=== PATIENT | female | born 1965 | race Caucasian/White ===

== ENCOUNTER 2017-02-04 19:56 | Emergency (ER) | payer MEDICAID, OTHER ==
[~2017-02-04] VITALS: Ht 170.2 cm; Wt 57.0 kg
[~2017-02-04 19:56] MED LIST: AMOX500T PO; CIPR500T4 PO; CYCL1PAK PO; LISI-360 PO; LISI10TA3 PO
[2017-02-04 19:57] VITALS: BP 145/89; PULSE 96; RESP 15; TEMP 98.4; O2SAT 96
--- NOTE | 2017-02-04 20:09 | PD ---
Physical Exam Date Seen by Provider: Feb 04, 2017 Time Seen by Provider: 20:08 Narrative 51 yo female here for left hand injury. Piece of furniture fell on it while helping family move it. Has hematoma and pain to dorsal left hand. Pain is 8/ 10. No prior injuries. Occurred earlier today. Ice not helping. Vitals are stable in triage. Awaiting bed placement. Data Data Last Documented VS Vital Signs Date Time Temp Pulse Resp B/P (MAP) Pulse Ox O2 Delivery O2 Flow Rate FiO2 02/04/17 19:57 98.4 96 15 145/89 (107) 96 Room Air Orders Orders Hand, Complete ([id number]) (02/04/17 ) [facility] Medical Record Reviewed: Yes Supervised Visit with JESSICA: No Sandoval Ybarra Feb 04, 2017 20:09
--- NOTE | 2017-02-04 20:41 | RADRPT ---
EXAM DATE/TIME: 02/04/2017 20:33 [facility] COMPARISON: No previous studies available for comparison. INDICATIONS : Left hand pain after couch fell on hand today. MEDICAL HISTORY : Hypertension. Smoker. SURGICAL HISTORY : None. ENCOUNTER: Initial ACUITY: 1 day PAIN SCORE: 10/10 LOCATION: Left MCPJ. FINDINGS: Three view examination of the left hand demonstrates no soft tissue swelling, dislocation, or fractur e. The carpal bones appear intact. The interphalangeal and metacarpophalangeal joints are intact. Bony mineralization is normal. CONCLUSION: No acute fracture or joint dislocation. Juwan Johnston MD on February 04, 2017 at 20:39 Board Certified Radiologist. This report was verified electronically.
--- NOTE | 2017-02-04 21:24 | PD ---
HPI Chief Complaint: Injury Time Seen by Provider: 21:17 Travel History International Travel<30 days: No Contact w/Intl Traveler<30days: No Traveled to known affect area: No History of Present Illness HPI 51 YO RIGHT-HAND DOMINANT FEMALE presents to the ED for evaluation of 8/10 left hand pain. Onset today after a sofa fell on it while she was attempting to help her daughter move. She endorses pain but denies limitations to range of motion, numbness or tingling. Exacerbated by movement. No alleviating factors reported. She treated at home with ice and ibuprofen with no improvement. She is unsure the date of her last tetanus immunization. PFSH Past Medical History Arthritis: No Asthma: No Autoimmune Disease: No Blood Disorders: No Anxiety: Yes Depression: Yes Heart Rhythm Problems: No Cancer: No Cardiovascular Problems: Yes High Cholesterol: Yes Chemotherapy: No Chest Pain: Yes Congestive Heart Failure: No COPD: No Cerebrovascular Accident: No Diabetes: No Diminished Hearing: No Endocrine: No GERD: Yes Glaucoma: No Genitourinary: Yes (diverticulitis, 4 kidney stone surgeries ) Headaches: Yes (migraines) Hepatitis: No Hiatal Hernia: No Hypertension: Yes Immune Disorder: No Kidney Stones: Yes Musculoskeletal: Yes Neurologic: No Psychiatric: Yes Reproductive: Yes (FIBROIDS, ENOMETRIOSIS, ABNORMAL BLEEDING) Respiratory: No Myocardial Infarction: No Radiation Therapy: No Renal Failure: No Seizures: No Sleep Apnea: No Thyroid Disease: No Ulcer: No Tetanus Vaccination: < 5 Years Influenza Vaccination: No ?: Not Menopausal: Yes : 2 Para: 2 Miscarriage: 0 : 0 Past Surgical History Abdominal Surgery: Yes (2 lAPS ) AICD: No Cardiac Surgery: No Section: Yes (x2) Ear Surgery: No Endocrine Surgery: No Eye Surgery: No Genitourinary Surgery: Yes (ONE KIDNEY STONE REMOVED FROM HOMER KIDNEYS 12/30) Gynecologic Surgery: Yes (2 LAPS REMOVAL OF CYSTS ON RIGHT OVARY) Hysterectomy: Yes (Total) Oral Surgery: No Pacemaker: No Thoracic Surgery: No Other Surgery: Yes (2 C SECTIONS) Social History Alcohol Use: No Tobacco Use: Yes (1 ppd) Substance Use: No Allergies-Medications (Allergen,Severity, Reaction): Coded Allergies: sulfamethoxazole (Unverified Allergy, Severe, EDEMA, 02/04/17) Per pt. trimethoprim (Unverified Allergy, Severe, EDEMA, 02/04/17) Per pt. Reported Meds & Prescriptions Reported Meds & Active Scripts Active Ibuprofen 600 Mg Tab 600 Mg PO Q8HR PRN Lisinopril 10 Mg Tab 10 Mg PO DAILY Review of Systems Except as stated in HPI: all other systems reviewed are Neg Physical Exam Narrative GENERAL: Well-nourished, well-developed white female in no acute distress. SKIN: Focused skin assessment warm/dry. HEAD: Normocephalic. EYES: No scleral icterus. No injection or drainage. NECK: Supple, trachea midline. No JVD or lymphadenopathy. CARDIOVASCULAR: Regular rate and rhythm without murmurs, gallops, or rubs. RESPIRATORY: Breath sounds equal bilaterally. No accessory muscle use. GASTROINTESTINAL: Abdomen soft, non-tender, nondistended. MUSCULOSKELETAL: No cyanosis, or edema. FOCUSED LEFT UPPER EXTREMITY EXAM: 2+ radial pulse. There is a 2 cm right 3 cm hematoma over the MP joints of the left hand. There is a 1 cm superficial laceration over this same area. The patient is able to oppose the thumb to each finger. She is able to flex and extend her digits weakly. Cap refills less than 2 seconds and sensation is intact to light touch on each digit BACK: Nontender without obvious deformity. No CVA tenderness. Data Data Last Documented VS Vital Signs Date Time Temp Pulse Resp B/P (MAP) Pulse Ox O2 Delivery O2 Flow Rate FiO2 02/04/17 22:14 02/04/17 22:13 78 18 97 Room Air 02/04/17 19:57 98.4 Orders Orders Hand, Complete ([id number]) (02/04/17 ) Acetamin-Hydrocod 325-5 Mg ([place] 5-325 (02/04/17 21:30) Bigg Bandage (02/04/17 21:30) Ed Discharge Order (02/04/17 21:30) Tetanus/Diphtheria Tox Adult (Tetanus/Di (02/04/17 21:45) Mandatory Outpatient Referral (02/04/17 21:44) [facility] Medical Decision Making Medical Screen Exam Complete: Yes Emergency Medical Condition: Yes Differential Diagnosis Contusion versus abrasion versus hematoma versus fracture versus dislocation versus tendinitis versus need for tetanus immunization versus other Narrative Course 51 YO RIGHT-HAND DOMINANT FEMALE presents to the ED for evaluation of 8/10 left hand pain. Exacerbated by movement. No alleviating factors reported. Onset today after a sofa fell on it while she was helping her daughter move. She denies limitations to ROM, numbness or tingling, previous injury. She is unsure the date of her last tetanus immunization. Vitals reviewed. FOCUSED LEFT UPPER EXTREMITY EXAM: 2+ radial pulse. There is a 2 cm right 3 cm hematoma over the MP joints of the left hand. There is a 1 cm superficial laceration over this same area. The patient is able to oppose the thumb to each finger. She is able to flex and extend her digits weakly. Cap refills less than 2 seconds and sensation is intact to light touch on each digit. Patient was administered 5 mg Lortab, ice pack was applied. Patient's tetanus immunization was updated. X-rays reveal no acute fracture or dislocation. Bigg wrap was applied to the affected area. Patient was instructed to rest, ice, elevate the extremity. She was provided with a prescription for ibuprofen. An mandatory outpatient follow-up was placed with the hand surgeon on-call, Dr. Grace. No one the patient of the dangers of compartment syndrome as well as possible secondary infection. I explained the outpatient follow-up process. Patient indicated understanding of the discharge instructions. She is stable and discharged home. Diagnosis Primary Impression: Traumatic hematoma of left hand Qualified Codes: S60.222A - Contusion of left hand, initial encounter Referrals: Jace Grace MD Patient Instructions: General Instructions, Hematoma (ED) Additional Instructions: Rest, ice, elevate the extremity. Apply ice no longer than 10-15 minutes per hour a few times a day. 800 mg ibuprofen up to 3 times a day as needed for pain. Return to normal, gentle activity as tolerated. Follow-up with the hand surgeon as discussed. Return to the ED for any urgent or emergent medical condition. Med/Other Pt SpecificInfo: Prescription(s) given Scripts Ibuprofen (Ibuprofen) 600 Mg Tab 600 MG PO Q8HR Y for PAIN, #15 TAB 0 Refills Prov: Nichole Wall MD 02/04/17 Disposition: 01 DISCHARGE HOME Condition: Stable Sagrario Burton Feb 04, 2017 21:24
[2017-02-04] MEDS ORDERED: ACETAMINOPHEN/HYDROcodone 325 MG/5 MG TAB PO ONE (21:30)
[2017-02-04] MEDS ORDERED: IBUP-232 PO (21:31)
[2017-02-04] MEDS ORDERED: TETANUS/DIPHTHERIA TOXOID ADULT 0.5 ML VIAL IM ONE (21:45)
[2017-02-04 22:13] VITALS: BP 138/84; PULSE 78; RESP 18; O2SAT 97
== END 2017-02-04 22:15 | disposition home or self-care (01) ==
LOC: NEPC 19:56
DX: S60.222A Contusion of left hand, initial encounter (principal); I10 Essential (primary) hypertension; E78.00 Pure hypercholesterolemia, unspecified; F17.200 Nicotine dependence, unspecified, uncomplicated; W20.8XXA Other cause of strike by thrown, projected or falling object, initial encounter; Z23 Encounter for immunization; Z86.59 Personal history of other mental and behavioral disorders; Z86.79 Personal history of other diseases of the circulatory system; Z87.19 Personal history of other diseases of the digestive system; Z87.448 Personal history of other diseases of urinary system; Z87.39 Personal history of other diseases of the musculoskeletal system and connective tissue; Z87.42 Personal history of other diseases of the female genital tract
CPT/HCPCS: 73130; 99283

== ENCOUNTER 2017-03-02 12:16 | Emergency (ER) | payer MEDICAID ==
[~2017-03-02] VITALS: Ht 167.6 cm; Wt 60.0 kg
[~2017-03-02 12:16] MED LIST changes: -AMOX500T PO; -CIPR500T4 PO; -CYCL1PAK PO; +IBUP-232 PO; -LISI-360 PO
[2017-03-02 12:19] VITALS: BP 131/109; PULSE 105; RESP 18; TEMP 97.6; O2SAT 97
[2017-03-02] MEDS ORDERED: methylPREDNISolone SOD SUCC 125 MG/2 ML VIAL IV PUSH ONE (12:45)
[2017-03-02] MEDS ORDERED: RESP: ALBUTEROL 2.5 MG/IPRATROPIUM 0.5 MG NEB (SCH) INH ONE (12:45)
[2017-03-02] MEDS ORDERED: SODIUM CHLORIDE 0.9% FLUSH 10 ML FLUSH IVF PRN (12:45)
[2017-03-02 12:48] VITALS: O2SAT 97
--- NOTE | 2017-03-02 12:50 | PD ---
HPI Chief Complaint: Medical Clearance Time Seen by Provider: 12:23 Travel History International Travel<30 days: No Contact w/Intl Traveler<30days: No Traveled to known affect area: No History of Present Illness HPI Patient is a 51 year old female who presents to the ER with multiple complaints. Patient reports that she is a 1-2 ppd smoker. Patient reports that for the past few weeks, she has had increased congestion and a productive cough. Reports that she has been taking cough medications without resolution of symptoms. Reports that she has had chills with no fever. Denies chest pain/ sob. Denies abdominal pain or nausea or vomiting. Reports that her whole family is sick with similar symptoms. Patient also reports that for the past 3 weeks, she has felt numbness from her neck down to her right hand. Reports that sometimes the numbness moves from left to right hand. Reports no trauma or alleviating factors. Denies head/dizziness, Reports history of chronic back pain. PFSH Past Medical History Arthritis: No Asthma: No Autoimmune Disease: No Blood Disorders: No Anxiety: Yes Depression: Yes Heart Rhythm Problems: No Cancer: No Cardiovascular Problems: Yes High Cholesterol: Yes Chemotherapy: No Chest Pain: Yes Congestive Heart Failure: No COPD: No Cerebrovascular Accident: No Diabetes: No Diminished Hearing: No Endocrine: No GERD: Yes Glaucoma: No Genitourinary: Yes (diverticulitis, 4 kidney stone surgeries ) Headaches: Yes (migraines) Hepatitis: No Hiatal Hernia: No Hypertension: Yes Immune Disorder: No Kidney Stones: Yes Musculoskeletal: Yes Neurologic: No Psychiatric: Yes Reproductive: Yes (FIBROIDS, ENOMETRIOSIS, ABNORMAL BLEEDING) Respiratory: No Myocardial Infarction: No Radiation Therapy: No Renal Failure: No Seizures: No Sleep Apnea: No Thyroid Disease: No Ulcer: No ?: Not Menopausal: Yes : 2 Para: 2 Miscarriage: 0 : 0 Past Surgical History Abdominal Surgery: Yes (2 lAPS ) AICD: No Cardiac Surgery: No Section: Yes (x2) Ear Surgery: No Endocrine Surgery: No Eye Surgery: No Genitourinary Surgery: Yes (ONE KIDNEY STONE REMOVED FROM HOMER KIDNEYS 12/30) Gynecologic Surgery: Yes (2 LAPS REMOVAL OF CYSTS ON RIGHT OVARY) Hysterectomy: Yes Oral Surgery: No Pacemaker: No Thoracic Surgery: No Other Surgery: Yes (2 C SECTIONS) Social History Alcohol Use: No Tobacco Use: Yes (1 ppd) Substance Use: No Allergies-Medications (Allergen,Severity, Reaction): Coded Allergies: sulfamethoxazole (Unverified Allergy, Severe, EDEMA, 02/04/17) Per pt. trimethoprim (Unverified Allergy, Severe, EDEMA, 02/04/17) Per pt. Reported Meds & Prescriptions Reported Meds & Active Scripts Active Ibuprofen 600 Mg Tab 600 Mg PO Q8HR PRN Lisinopril 10 Mg Tab 10 Mg PO DAILY Review of Systems General / Constitutional: No: Fever Eyes: No: Visual changes HENT: No: Headaches Cardiovascular: No: Chest Pain or Discomfort, Palpitations, Irregular Rhythm Respiratory: Positive: Cough, Shortness of Breath, Wheezing Gastrointestinal: No: Abdominal Pain Genitourinary: No: Dysuria Musculoskeletal: No: Pain Skin: No Rash Neurologic: Positive: Paresthesia, No: Weakness, Dizziness, Headache Psychiatric: No: Depression Endocrine: No: Polydipsia Hematologic/Lymphatic: No: Easy Bruising Physical Exam Narrative GENERAL: NAD SKIN: Focused skin assessment warm/dry. HEAD: Atraumatic. Normocephalic. EYES: Pupils equal and round. No scleral icterus. No injection or drainage. ENT: No nasal bleeding or discharge. Mucous membranes pink and moist. NECK: Trachea midline. No JVD. Paraspinal tenderness CARDIOVASCULAR: Regular rate and rhythm. No murmur appreciated. RESPIRATORY: No accessory muscle use. Clear to auscultation. Breath sounds equal bilaterally. GASTROINTESTINAL: Abdomen soft, non-tender, nondistended. Hepatic and splenic margins not palpable. MUSCULOSKELETAL: No obvious deformities. No clubbing. No cyanosis. No edema. NEUROLOGICAL: Awake and alert. No obvious cranial nerve deficits. Motor grossly within normal limits. Normal speech. CN 2-12 grossly intact with no neurovascular compromise PSYCHIATRIC: Appropriate mood and affect; insight and judgment normal. Data Data Last Documented VS Vital Signs Date Time Temp Pulse Resp B/P (MAP) Pulse Ox O2 Delivery O2 Flow Rate FiO2 03/02/17 13:12 18 03/02/17 12:48 97 Nasal Cannula 2.00 03/02/17 12:19 97.6 105 Orders Orders Complete Blood Count With Diff (03/02/17 12:33) Basic Metabolic Panel (Bmp) (03/02/17 12:33) Chest, Single Ap (03/02/17 12:33) Ecg Monitoring (03/02/17 12:33) Iv Access Insert/Monitor (03/02/17 12:33) Oximetry (03/02/17 12:33) Sodium Chloride 0.9% Flush (Ns Flush) (03/02/17 12:45) Influenzae A/B Antigen (03/02/17 12:33) Methylprednisolone So Succ Inj (Solumedr (03/02/17 12:45) Albuterol-Ipratropium Neb (Duoneb Neb) (03/02/17 12:45) Ct Brain W/O Iv Contrast(Rout) (03/02/17 12:33) Ct Cerv Spine W/O Contrast (03/02/17 12:33) Potassium Chloride (Kcl) (03/02/17 13:45) Labs Laboratory Tests Test 03/02/17 12:46 White Blood Count 9.7 TH/MM3 Red Blood Count 4.57 MIL/MM3 Hemoglobin 14.4 GM/DL Hematocrit 43.7 % Mean Corpuscular Volume 95.8 FL Mean Corpuscular Hemoglobin 31.6 PG Mean Corpuscular Hemoglobin Concent 33.0 % Red Cell Distribution Width 15.1 % Platelet Count 218 TH/MM3 Mean Platelet Volume 8.3 FL Neutrophils (%) (Auto) 70.7 % Lymphocytes (%) (Auto) 21.2 % Monocytes (%) (Auto) 6.8 % Eosinophils (%) (Auto) 0.6 % Basophils (%) (Auto) 0.7 % Neutrophils # (Auto) 6.8 TH/MM3 Lymphocytes # (Auto) 2.0 TH/MM3 Monocytes # (Auto) 0.7 TH/MM3 Eosinophils # (Auto) 0.1 TH/MM3 Basophils # (Auto) 0.1 TH/MM3 CBC Comment DIFF FINAL Differential Comment Blood Urea Nitrogen 5 MG/DL Creatinine 0.67 MG/DL Random Glucose 90 MG/DL Calcium Level 8.6 MG/DL Sodium Level 139 MEQ/L Potassium Level 3.1 MEQ/L Chloride Level 103 MEQ/L Carbon Dioxide Level 26.5 MEQ/L Anion Gap 10 MEQ/L Estimat Glomerular Filtration Rate 92 ML/MIN MDM Medical Decision Making Medical Screen Exam Complete: Yes Emergency Medical Condition: Yes Medical Record Reviewed: Yes Interpretation(s) Vital Signs Date Time Temp Pulse Resp B/P (MAP) Pulse Ox O2 Delivery O2 Flow Rate FiO2 03/02/17 12:19 97.6 105 18 131/109 (116) 97 Room Air Differential Diagnosis Bronchitis, pneumonia, cervical radiculopathy, electrolyte abnormality Narrative Course 51-year-old nontoxic female who presents to emergency room with complaints of productive cough for the past 3 weeks along with paresthesias and numbness to the right arm for the past 3 weeks. Patient with no neurovascular compromise at this time, reports chronic neck and back pain. CT of the head and neck ordered to evaluate for cervical radiculopathy, x-ray of the chest ordered to evaluate for possible pneumonia. During the course of the patients emergency department visit, the patients history, examination, and differential diagnosis were reviewed with the patient. The patient was placed on a cook pressure with oximetry and frequent blood pressure monitoring. The patient had a 20-gauge IV access obtained and blood work sent for analysis. The patient was initially provided IV steroids, nebulizer treatment The patients laboratory studies were reviewed and remarkable for Laboratory Tests Test 03/02/17 12:46 White Blood Count 9.7 TH/MM3 (4.0-11.0) Red Blood Count 4.57 MIL/MM3 (4.00-5.30) Hemoglobin 14.4 GM/DL (11.6-15.3) Hematocrit 43.7 % (35.0-46.0) Mean Corpuscular Volume 95.8 FL (80.0-100.0) Mean Corpuscular Hemoglobin 31.6 PG (27.0-34.0) Mean Corpuscular Hemoglobin Concent 33.0 % (32.0-36.0) Red Cell Distribution Width 15.1 % (11.6-17.2) Platelet Count 218 TH/MM3 (150-450) Mean Platelet Volume 8.3 FL (7.0-11.0) Neutrophils (%) (Auto) 70.7 % (16.0-70.0) Lymphocytes (%) (Auto) 21.2 % (9.0-44.0) Monocytes (%) (Auto) 6.8 % (0.0-8.0) Eosinophils (%) (Auto) 0.6 % (0.0-4.0) Basophils (%) (Auto) 0.7 % (0.0-2.0) Neutrophils # (Auto) 6.8 TH/MM3 (1.8-7.7) Lymphocytes # (Auto) 2.0 TH/MM3 (1.0-4.8) Monocytes # (Auto) 0.7 TH/MM3 (0-0.9) Eosinophils # (Auto) 0.1 TH/MM3 (0-0.4) Basophils # (Auto) 0.1 TH/MM3 (0-0.2) CBC Comment DIFF FINAL Differential Comment Blood Urea Nitrogen 5 MG/DL (7-18) Creatinine 0.67 MG/DL (0.50-1.00) Random Glucose 90 MG/DL (74-106) Calcium Level 8.6 MG/DL (8.5-10.1) Sodium Level 139 MEQ/L (136-145) Potassium Level 3.1 MEQ/L (3.5-5.1) Chloride Level 103 MEQ/L (98-107) Carbon Dioxide Level 26.5 MEQ/L (21.0-32.0) Anion Gap 10 MEQ/L (5-15) Estimat Glomerular Filtration Rate 92 ML/MIN (>89) Microbiology Date/Time Source Procedure Growth Status 03/02/17 12:46 Nasal Aspirate Influenza Types A,B Antigen (RACHEL) - Final NEGATIVE FOR FLU A AND B ANTIGEN.... Complete Radiology studies were reviewed and remarkable for: Last Impressions Head CT 03/02/17 1233 Signed Impressions: Service Date/Time: Thursday, March 02, 2017 13:22 - CONCLUSION: No acute intracranial abnormality. Wilber Cates MD Chest X-Ray 03/02/17 1233 Signed Impressions: Service Date/Time: Thursday, March 02, 2017 13:03 - CONCLUSION: No evidence of acute cardiopulmonary disease. Wilber Cates MD Ct of c-spine: no fracture, subluxation or stenosis Overall, patient is feeling much better at this time. Right arm numbness most likely from cervical radiculopathy - symptoms have been ongoing for the past 3 weeks, she has no neurovascular compromise at this time. She'll follow-up with neurology as outpatient. Patient also with acute bronchitis, plan to treat with steroids, neb treatments, antibiotics. She will follow up with her pcp as outpatient and will return to ER as needed. I reviewed all labs and studies as well as all incidental findings with patient in detail. Diagnosis Primary Impression: Acute bronchitis Qualified Codes: J20.9 - Acute bronchitis, unspecified Additional Impression: Radiculopathy Qualified Codes: M54.12 - Radiculopathy, cervical region Patient Instructions: General Instructions Additional Instructions: Please provide patient with a copy of their lab work and studies at discharge* * Please follow up with your primary care doctor in 2-3 days Please follow up with neurologist for your paraesthesia's Return to the ER if symptoms worsen or progress Return to the ER as needed Med/Other Pt SpecificInfo: Prescription(s) given Scripts Promethazine-Codeine Liq (Promethazine-Codeine Liq) 6.25-10 Mg/5 Ml Syrp 5 ML PO Q6H Y for COUGH AND/OR COLD SYMPTOMS for 10 Days, #200 ML 0 Refills Prov: Filomena Alfonso DO 03/02/17 Benzonatate (Tessalon Perles) 100 Mg Cap 100 MG PO TID Y for COUGH, #30 CAP 0 Refills Prov: Filomena Alfonso DO 03/02/17 Prednisone (Prednisone) 20 Mg Tab 20 MG PO BID for 5 Days, #10 TAB 0 Refills Prov: Filomena Alfonso DO 03/02/17 Albuterol 8.5 GM Inh (Proair Hfa 8.5 GM Inh) 90 Mcg/Act Aer 2 PUFF INH Q4-6H Y for SHORTNESS OF BREATH, #1 INHALER 0 Refills 108 mcg/actuation Prov: Filomena Alfonso DO 03/02/17 Azithromycin (Azithromycin) 500 Mg Tab 500 MG PO DAILY for Infection, #5 TAB 0 Refills Prov: Filomena Alfonso DO 03/02/17 Disposition: 01 DISCHARGE HOME Condition: Stable Filomena Alfonso DO Mar 02, 2017 12:50
[2017-03-02 13:06] LABS: AUTOMATED NEUTROPHIL # 6.8 TH/MM3 (1.8-7.7); BASOPHIL # 0.1 TH/MM3 (0-0.2); BASOPHIL % 0.7 % (0.0-2.0); EOSINOPHIL # 0.1 TH/MM3 (0-0.4); EOSINOPHIL % 0.6 % (0.0-4.0); HEMATOCRIT 43.7 % (35.0-46.0); HEMO FLAGS DIFF FINAL; LYMPH % 21.2 % (9.0-44.0); MEAN CELL VOLUME 95.8 FL (80.0-100.0); MEAN CORPUSCULAR HEMOGLOBIN 31.6 PG (27.0-34.0); MONO % 6.8 % (0.0-8.0); NEUT % 70.7 % (16.0-70.0); PLATELET COUNT 218 TH/MM3 (150-450); RED BLOOD COUNT 4.57 MIL/MM3 (4.00-5.30); RED CELL DISTRIBUTION WIDTH 15.1 % (11.6-17.2); WHITE BLOOD COUNT 9.7 TH/MM3 (4.0-11.0)
[2017-03-02 13:29] LABS: BICARBONATE 26.5 MEQ/L (21.0-32.0)
--- NOTE | 2017-03-02 13:30 | RADRPT ---
EXAM DATE/TIME: 03/02/2017 13:22 [facility] COMPARISON: Report only CT BRAIN W/O CONTRAST, December 30, 2011, 22:56. INDICATIONS : Right arm numbness for three weeks. RADIATION DOSE: 34.48 CTDIvol (mGy) MEDICAL HISTORY : Cardiovascular disease. Hypertension. SURGICAL HISTORY : Hysterectomy. ENCOUNTER: Initial ACUITY: 1 day PAIN SCALE: 0/10 LOCATION: Bilateral head TECHNIQUE: Multiple contiguous axial images were obtained of the head. Using automated exposure control and adj ustment of the mA and/or kV according to patient size, radiation dose was kept as low as reasonably a chievable to obtain optimal diagnostic quality images. DICOM format image data is available electro nically for review and comparison. FINDINGS: CEREBRUM: The ventricles are normal for age. No evidence of midline shift, mass lesion, hemorrhage or acute in farction. No extra-axial fluid collections are seen. POSTERIOR FOSSA: The cerebellum and brainstem are intact. The 4th ventricle is midline. The cerebellopontine angle i s unremarkable. EXTRACRANIAL: The visualized portion of the orbits is intact. SKULL: The calvaria is intact. No evidence of skull fracture. CONCLUSION: No acute intracranial abnormality. Wilber Cates MD on March 02, 2017 at 13:28 Board Certified Radiologist. This report was verified electronically.
--- NOTE | 2017-03-02 13:34 | RADRPT ---
EXAM DATE/TIME: 03/02/2017 13:03 [facility] COMPARISON: CHEST SINGLE AP, January 05, 2014, 18:49. INDICATIONS : Chest pain and shortness of breath. MEDICAL HISTORY : Hypercholesterolemia. Hypertension SURGICAL HISTORY : None. ENCOUNTER: Initial ACUITY: 1 day PAIN SCORE: 4/10 LOCATION: Bilateral chest FINDINGS: A single view of the chest demonstrates the lungs to be symmetrically aerated without evidence of mas s, infiltrate or effusion. The cardiomediastinal contours are unremarkable. Osseous structures are intact. CONCLUSION: No evidence of acute cardiopulmonary disease. Wilber Cates MD on March 02, 2017 at 13:31 Board Certified Radiologist. This report was verified electronically.
[2017-03-02 13:43] LABS: POTASSIUM 3.1 MEQ/L (3.5-5.1)
--- NOTE | 2017-03-02 13:43 | RADRPT ---
EXAM DATE/TIME: 03/02/2017 13:22 [facility] COMPARISON: No previous studies available for comparison. INDICATIONS : Right arm numbness for three weeks. RADIATION DOSE: 10.49 CTDIvol (mGy) MEDICAL HISTORY : Cardiovascular disease. Hypertension. SURGICAL HISTORY : Hysterectomy. ENCOUNTER: Initial ACUITY: 1 day PAIN SCALE: 0/10 LOCATION: Bilateral neck TECHNIQUE: Volumetric scanning of the cervical spine was performed. Multiplanar reconstructions in the sagittal, coronal and oblique axial planes were performed. Using automated exposure control and adjustment o f the mA and/or kV according to patient size, radiation dose was kept as low as reasonably achievable to obtain optimal diagnostic quality images. DICOM format image data is available electronically f or review and comparison. FINDINGS: VERTEBRAE: Normal vertebral body height. ALIGNMENT: No evidence of subluxation. C2-C3: The bony spinal canal is normal in size. No evidence of disc bulge or herniation. The neural forami na are bilaterally patent. C3-C4: The bony spinal canal is normal in size. No evidence of disc bulge or herniation. The neural forami na are bilaterally patent. C4-C5: The bony spinal canal is normal in size. No evidence of disc bulge or herniation. The neural forami na are bilaterally patent. C5-C6: The bony spinal canal is normal in size. No evidence of disc bulge or herniation. The neural forami na are bilaterally patent. C6-C7: The bony spinal canal is normal in size. No evidence of disc bulge or herniation. The neural forami na are bilaterally patent. C7-T1: The bony spinal canal is normal in size. No evidence of disc bulge or herniation. The neural forami na are bilaterally patent. Emphysema seen of the visualized lung apices. CONCLUSION: Negative CT of the cervical spine. No fracture, subluxation or stenosis. Wilber Cates MD on March 02, 2017 at 13:38 Board Certified Radiologist. This report was verified electronically.
[2017-03-02] MEDS ORDERED: POTASSIUM CHLORIDE 10 MEQ CONTROLLED RELEASE TAB PO ONE (13:45)
[2017-03-02] MEDS ORDERED: ALBUAER3 INH (13:51)
[2017-03-02] MEDS ORDERED: AZIT500T2 PO (13:51)
[2017-03-02] MEDS ORDERED: BENZ100 PO (13:51)
[2017-03-02] MEDS ORDERED: PROM6.256 PO (13:51)
[2017-03-02] MEDS ORDERED: PRED20 PO (13:51)
[2017-03-02] MEDS ORDERED: AZITHROMYCIN 250 MG TAB PO ONE (14:00)
== END 2017-03-02 14:04 | disposition home or self-care (01) ==
LOC: NEPD 12:16
DX: J20.9 Acute bronchitis, unspecified (principal); M54.12 Radiculopathy, cervical region; F41.9 Anxiety disorder, unspecified; F32.9 Major depressive disorder, single episode, unspecified; E78.00 Pure hypercholesterolemia, unspecified; K21.9 Gastro-esophageal reflux disease without esophagitis; K57.92 Diverticulitis of intestine, part unspecified, without perforation or abscess without bleeding; I10 Essential (primary) hypertension; F17.200 Nicotine dependence, unspecified, uncomplicated
CPT/HCPCS: 70450; 71010; 72125; 80048; 85025; 87804; 94664; 96374; 99285; J2930

== ENCOUNTER 2017-04-30 04:53 | Emergency (ER) | payer MEDICAID ==
[~2017-04-30] VITALS: Ht 170.2 cm; Wt 55.0 kg
[~2017-04-30 04:53] MED LIST changes: +ALBUAER3 INH; +AZIT500T2 PO; +BENZ100 PO; +PRED20 PO; +PROM6.256 PO
[2017-04-30 04:55] VITALS: BP 131/92; PULSE 114; RESP 16; TEMP 98.5; O2SAT 98
[2017-04-30] MEDS ORDERED: AMOXICILLIN (TRIHYDRATE) 500 MG CAP PO ONE (05:30)
[2017-04-30] MEDS ORDERED: ACETAMINOPHEN/HYDROcodone 325 MG/5 MG TAB PO ONE (05:30)
--- NOTE | 2017-04-30 05:35 | PD ---
HPI Chief Complaint: Injury Time Seen by Provider: 05:17 Travel History International Travel<30 days: No Contact w/Intl Traveler<30days: No Traveled to known affect area: No History of Present Illness HPI 51-year-old white female presents to emergency Department with complaints of left ankle pain. She states that she had injured it earlier this evening when her boxer had stepped onto her ankle. Patient states the pain is severe. She denies any other injuries. She denies any numbness or tingling. No alleviating factors. Exacerbated by movement. PFSH Past Medical History Arthritis: No Asthma: No Autoimmune Disease: No Blood Disorders: No Anxiety: Yes Depression: Yes Heart Rhythm Problems: No Cancer: No Cardiovascular Problems: Yes High Cholesterol: Yes Chemotherapy: No Chest Pain: Yes Congestive Heart Failure: No COPD: No Cerebrovascular Accident: No Diabetes: No Diminished Hearing: No Endocrine: No Gastrointestinal Disorders: No GERD: Yes Glaucoma: No Genitourinary: Yes (diverticulitis, 4 kidney stone surgeries ) Headaches: Yes (migraines) Hepatitis: No Hiatal Hernia: No Hypertension: Yes Immune Disorder: No Implanted Vascular Access Dvce: No Kidney Stones: Yes Musculoskeletal: Yes Neurologic: No Psychiatric: Yes Reproductive: Yes (FIBROIDS, ENOMETRIOSIS, ABNORMAL BLEEDING) Respiratory: No Myocardial Infarction: No Radiation Therapy: No Renal Failure: No Seizures: No Sleep Apnea: No Thyroid Disease: No Ulcer: No Tetanus Vaccination: < 5 Years Influenza Vaccination: No ?: Not LMP: menapause Menopausal: Yes : 2 Para: 2 Miscarriage: 0 : 0 Past Surgical History Abdominal Surgery: Yes (2 lAPS ) AICD: No Section: Yes (x2) Genitourinary Surgery: Yes (ONE KIDNEY STONE REMOVED FROM HOMER KIDNEYS 12/30) Gynecologic Surgery: Yes (2 LAPS REMOVAL OF CYSTS ON RIGHT OVARY) Hysterectomy: Yes Insulin Pump: No Pacemaker: No Other Surgery: Yes (2 C SECTIONS) Social History Alcohol Use: No Tobacco Use: Yes (1 ppd) Substance Use: No Allergies-Medications (Allergen,Severity, Reaction): Coded Allergies: sulfamethoxazole (Unverified Allergy, Severe, EDEMA, 04/30/17) Per pt. trimethoprim (Unverified Allergy, Severe, EDEMA, 04/30/17) Per pt. Reported Meds & Prescriptions Reported Meds & Active Scripts Active Ibuprofen 600 Mg Tab 600 Mg PO Q6H PRN Amoxicillin 500 Mg Cap 500 Mg PO BID 10 Days Promethazine-Codeine Liq 6.25-10 Mg/5 Ml Syrp 5 Ml PO Q6H PRN 10 Days Tessalon Perles (Benzonatate) 100 Mg Cap 100 Mg PO TID PRN Prednisone 20 Mg Tab 20 Mg PO BID 5 Days Proair Hfa 8.5 GM Inh (Albuterol Sulfate) 90 Mcg/Act Aer 2 Puff INH Q4-6H PRN 108 mcg/actuation Azithromycin 500 Mg Tab 500 Mg PO DAILY Ibuprofen 600 Mg Tab 600 Mg PO Q8HR PRN Lisinopril 10 Mg Tab 10 Mg PO DAILY Review of Systems General / Constitutional: No: Fever Eyes: No: Visual changes HENT: Positive: Sore Throat, Congestion, No: Headaches Cardiovascular: No: Chest Pain or Discomfort Respiratory: No: Shortness of Breath Gastrointestinal: No: Abdominal Pain Genitourinary: No: Dysuria Musculoskeletal: Positive: Arthralgias, Limited ROM, Edema, Pain Skin: No Rash Neurologic: No: Weakness, Paresthesia Psychiatric: No: Depression Endocrine: No: Polydipsia Hematologic/Lymphatic: No: Easy Bruising Physical Exam Narrative GENERAL: This is a well-nourished, well-developed patient, in no apparent distress. SKIN: No rashes, ecchymoses or lesions. Warm and dry. HEAD: Atraumatic. Normocephalic. EYES: PERRL, EOMI, no discharge or injection. No scleral icterus. EARS: Clear NOSE: Nasal turbinates appear normal. THROAT: Mucosa erythematous and moist. Airway patent. NECK: Trachea midline. supple, moves head freely. LUNGS: Clear to auscultation. CV: Regular in rhythm. ABDOMEN: Soft nontender. EXT: No clubbing cyanosis . Examination of the left lower extremity reveals moderate swelling in the ankle with erythema both medially and laterally. She has mild swelling into the foot. She has intact sensation with good distal pulses. The skin is intact. No pain in the knee or hip. The right lower extremity as well as upper extremities are without localizing bony tenderness or deformity. Data Data Last Documented VS Vital Signs Date Time Temp Pulse Resp B/P (MAP) Pulse Ox O2 Delivery O2 Flow Rate FiO2 04/30/17 06:19 100 16 123/67 (85) 98 Room Air 04/30/17 04:55 98.5 Orders Orders Ankle, Complete (Tpg6kgv) (04/30/17 05:29) Ice/Cold Pack (04/30/17 05:29) Amoxicillin (Trimox) (04/30/17 05:30) Acetamin-Hydrocod 325-5 Mg ([place] 5-325 (04/30/17 05:30) Splint Or Brace Apply/Monitor (04/30/17 06:19) Crutches (04/30/17 06:19) MDM Medical Decision Making Medical Screen Exam Complete: Yes Emergency Medical Condition: Yes Medical Record Reviewed: Yes Interpretation(s) Left ankle: Negative for acute fracture. Positive soft tissue swelling Differential Diagnosis MDM: High Differential diagnoses: Fracture, sprain, strain, dislocation, contusion, neurovascular injury Narrative Course Patient's story of being stepped on by her dog's is hard to believe. Patient has a tender, swollen, red ankle. She has had no history of other trauma. She has had development of a cold and a sore throat over the last few days. Patient will be treated symptomatically with Motrin, Bigg wrap and crutches. She 'll also be given amoxicillin for her otitis. This is left ankle pain, acute pharyngitis Diagnosis Primary Impression: Left ankle pain Additional Impression: acute pharyngitis Patient Instructions: General Instructions, Narcotic given in the ED Additional Instructions: Rest. Elevation. Ice packs for the next 3 days. Bigg wrap and crutches. No weight-bearing and then progress to weight-bearing as tolerated. Medications as directed Amoxicillin. Force fluids. Follow-up with Dr. Corrales your doctor in the next 2 days. Return to the ER if any problems Med/Other Pt SpecificInfo: Prescription(s) given Scripts Ibuprofen (Ibuprofen) 600 Mg Tab 600 MG PO Q6H Y for Pain/Inflammation, #40 TAB 0 Refills Prov: Gume West MD 04/30/17 Amoxicillin (Amoxicillin) 500 Mg Cap 500 MG PO BID for Infection for 10 Days, #20 CAP 0 Refills Prov: Gume West MD 04/30/17 Disposition: 01 DISCHARGE HOME Condition: Stable Bola Winters Apr 30, 2017 05:35
[2017-04-30 06:19] VITALS: BP 123/67; PULSE 100; RESP 16; O2SAT 98
[2017-04-30] MEDS ORDERED: AMOX500C PO (06:21)
[2017-04-30] MEDS ORDERED: IBUP-232 PO (06:21)
--- NOTE | 2017-04-30 06:28 | RADRPT ---
EXAM DATE/TIME: 04/30/2017 05:41 [facility] COMPARISON: No previous studies available for comparison. INDICATIONS : Swelling on medial and lateral portions of ankle. MEDICAL HISTORY : None. SURGICAL HISTORY : None. ENCOUNTER: Initial ACUITY: 1 day PAIN SCORE: 7/10 LOCATION: Left ankle FINDINGS: Three view exam was performed of the left ankle. The bony structures are in normal alignment. No ev idence of fracture or dislocation. Lateral malleolar soft tissue swelling. The ankle mortise is intac t. No radiopaque foreign bodies are seen. Bony mineralization is normal. CONCLUSION: 1. Lateral soft tissue swelling. Delfin Vincent Jr., MD on April 30, 2017 at 6:26 Board Certified Radiologist. This report was verified electronically.
== END 2017-04-30 06:43 | disposition home or self-care (01) ==
LOC: NEPD 04:53
DX: M25.572 Pain in left ankle and joints of left foot (principal); J02.9 Acute pharyngitis, unspecified; F17.200 Nicotine dependence, unspecified, uncomplicated; E78.00 Pure hypercholesterolemia, unspecified; F32.9 Major depressive disorder, single episode, unspecified; F41.9 Anxiety disorder, unspecified; I10 Essential (primary) hypertension; K21.9 Gastro-esophageal reflux disease without esophagitis
CPT/HCPCS: 73610; 99283; E0113